=== PATIENT | female | born 1970 | race Caucasian/White ===

== ENCOUNTER → 2020-01-09 | Outpatient (CLI) | payer SELFPAY ==
--- NOTE | 2020-01-09 12:45 | RAD ---
Examination: Ultrasound abdomen complete HISTORY: History of right upper quadrant pain COMPARISON: None available FINDINGS: Increased echogenicity identified throughout the liver likely hepatic steatosis. There is a 2.3 cm hypoechogenicity identified in the left lobe of the liver. Gallbladder is mildly distended. The right kidney measures 11.3 x 4.9 x 4.3 cm. The left kidney measures 11.1 x 5.9 x 6.4 cm. The pancreas, aorta, IVC are not well-visualized due to bowel gas. The visualized spleen appears unremarkable. IMPRESSION: 1. 2.3 cm hypoechogenicity within the left lobe of the liver. Difficult to characterize. Recommend MRI for further evaluation. 2. Hepatic steatosis. Electronically signed by: Jacob Mora MD (01/09/2020 12:42 PM) [id number]
== END | disposition home or self-care (01) ==
LOC: US 08:29
PROVIDERS: ATTEND Family Medicine
DX: K76.0 Fatty (change of) liver, not elsewhere classified (principal); K82.8 Other specified diseases of gallbladder
CPT/HCPCS: 76700